=== PATIENT | male | born 1950 | race Caucasian/White ===

== ENCOUNTER 2023-05-04 06:46 | Emergency (ER) | payer BC ==
[~2023-05-04] VITALS: Ht 167.6 cm; Wt 62.0 kg
[2023-05-04 07:05] VITALS: BP 179/73; RESP 16; TEMP 98.7; O2SAT 99
[2023-05-04 07:16] VITALS: PULSE 63
== END 2023-05-04 08:23 | disposition home or self-care (01) ==
LOC: ER 06:46
DX: L02.416 Cutaneous abscess of left lower limb (principal)
CPT/HCPCS: 99281